=== PATIENT | female | born 1975 | race Caucasian/White ===

== ENCOUNTER 2016-11-14 09:01 | Emergency (ER) | payer MEDICAID ==
[2016-11-14 09:36] LABS: BASOPHILS 0.3 % (0-2); HEMATOCRIT 40.3 % (36.0-48.0); HEMOGLOBIN 13.5 g/dL (12-16); IMMATURE GRANULOCYTES 0.3 % (0-5); LYMPHOCYTES 22.7 % (15-50); MCH 29.7 pg (26.0-34.0); MCHC 33.5 g/dL (31.0-37.0); MCV 88.6 fL (80.0-100.0); MEAN PLATELET VOLUME 11.5 fL (7.4-10.4); NEUTROPHILS 63.7 % (40-80); PLATELET COUNT 234 10x3/uL (130-400); RBC 4.55 10x6/uL (4.00-5.40); RDW 14.2 % (11.5-14.5); WBC 7.9 10x3/uL (4.8-10.8)
[2016-11-14 09:52] LABS: ALBUMIN 3.7 g/dL (3.4-5.0); ALKALINE PHOSPHATASE 66 U/L (46-116); ALT (SGPT) 29 U/L (10-68); BILIRUBIN - TOTAL 0.89 mg/dL (0.2-1.3); CALC OSMOLALITY 280 mosm/kg (275-300); CALCIUM 9.4 mg/dL (8.5-10.1); CARBON DIOXIDE 28.6 mmol/L (21.0-32.0); CHLORIDE - SERUM 104 mmol/L (98-107); CREATININE - SERUM 0.8 mg/dL (0.6-1.3); GLUCOSE 91 mg/dL (74-106); POTASSIUM - SERUM 3.2 mmol/L (3.5-5.1); PROTEIN - SERUM 7.7 g/dL (6.4-8.2); SODIUM 141 mmol/L (136-145); UREA NITROGEN 13 mg/dL (7-18); eGFR NON AFRICAN AMERICAN 83 mL/min (90-120)
[2016-11-14 11:00] LABS: APPEARANCE CLEAR (CLEAR); BACTERIA MANY /hpf (NONE SEEN); BILIRUBIN NEGATIVE (NEGATIVE); COLOR YELLOW (YELLOW); GLUCOSE NEGATIVE (NEGATIVE); KETONE LARGE mg/dL (NEGATIVE); LEUKOCYTE ESTERASE TRACE (NEGATIVE); MUCUS >1+ /lpf (NONE SEEN); NITRITE NEGATIVE (NEGATIVE); PROTEIN NEGATIVE (NEGATIVE); RED CELLS - URINE 0-5 /hpf (0-5); SPECIFIC GRAVITY 1.015 (1.005-1.020); UROBILINOGEN NORMAL (NORMAL); WHITE CELLS - URINE 0-5 /hpf (0-5)
== END 2016-11-14 12:03 | disposition home or self-care (01) ==
LOC: D.ER 09:01
PROVIDERS: Emergency Medicine
DX: M62.838 Other muscle spasm (principal); F17.200 Nicotine dependence, unspecified, uncomplicated

== ENCOUNTER → 2016-12-10 08:41 | Outpatient (CLI) | payer MEDICAID ==
--- NOTE | 2016-12-10 13:35 | NUR ---
Nutrition education for post-bariatric sleeve surgery: S: Pt reports having a gastric sleeve in [place] 6 weeks ago. Pt did not get any pre/post op diet instruction and has been eating what she thought was appropriate amounts of food. Pt states she has been eating potatoes, fast food; pretty much what every she wanted. Pt also reports her weight loss has stopped and she has even gained 2# back! Pt is now asking for help with her post-gastric sleeve diet. Pt has been eating and drinking together and using straws. Pt reports she has been throwing up a lot and is not sure why. O: 41 year old female Ht: 5'1" Current weight 198# Highest wt: 237# BMI: 37.4 A: Pt has not been following the bariatric diet phases due to no instruction. RDN reviewed what diet pt should be on at 6 weeks post-op. Reviewed soft diet meal plan and instructed pt on no more than 3 ounces per meal and 2 ounces of protein supplement for snacks. Reviewed no drinking with meals, no straws, no carbonated beverages, no alcohol; discussed stomach size and pouch stretching; discussed no sweets or carbohydrates. RDN advised pt to never eat fast food; discussed taking a daily mulivitamin and sipping water all day long except with meals. Reviewe sample menus from all diet phases. Advised pt to start with full liquids if she continues to have trouble with vomiting. Also advised pt that she may have already stretched the stomach pouch out due to already gaining weight back. Pt with good understanding of information provided. RDN feels pt will try to be compliance; however, RDN feels pt may not be able to resist eating the wrong foods due to the lack of preperation before surgery. Pt does have a realistic and attainable goal wt of 170#. P: Provided pt with printed diet information and RDN name and phone number. RDN will be available if needed. Thank you for the consult.
== END ==
LOC: D.FANS 08:41
DX: Z98.890 Other specified postprocedural states (principal)

== ENCOUNTER → 2016-12-12 16:44 | Outpatient (CLI) | payer MEDICAID | END | disposition home or self-care (01) | LOC: D.MAMMO 15:00 | DX: Z12.31 Encounter for screening mammogram for malignant neoplasm of breast (principal) ==